=== PATIENT | female | born 1990 | race Caucasian/White ===

== ENCOUNTER → 2021-06-09 14:42 | Outpatient (CLI) | payer OTHER, SELFPAY ==
--- NOTE | ~2021-06-09 | US_ITS ---
EXAMINATION: US OB <=14 wk fetus w TV DATE: 06/09/2021 15:17 INDICATION: First trimester dating and viability assessment TECHNIQUE: Real-time pelvic transabdominal and transvaginal ultrasound was performed. COMPARISON: None. FINDINGS: The uterus measures 10.6 x 5.7 x 6.4 cm. There is an intrauterine gestational sac. There i s a 1.4 x 0.8 x 0.9 cm anechoic area adjacent to the gestational sac A yolk sac is identified. heart motion is identified measuring 163 beats per minute (bpm) by M-mode Doppler. The crown ru mp length measures 1.3 cm , which correlates with an estimated gestational age of 7 weeks and 4 day(s ) (+/-) 5 day(s). The right ovary measures 2.2 x 2.3 x 2.7 cm. The left ovary measures 5.8 x 3.5 x 4.2 cm and contains a 3.5 cm hypoechoic lesion, likely hemorrhagic cyst or endometrioma. There is normal vascular flow in the ovaries. There is no free fluid in the pelvis. IMPRESSION: 1. Live intrauterine with an estimated gestational age of 7 weeks and 4 day(s) (+/-) 5 day( s) and an estimated delivery date of 01/22/2022. 2. Small anechoic area adjacent to the gestational sac, likely small subchronic hemorrhage although i nvoluting second gestational sac is a consideration. Reviewed, dictated and finalized at location F. IMPRESSION: 1. Live intrauterine with an estimated gestational age of 7 weeks and 4 day(s) (+/-) 5 day(s) and an estimated delivery date of 01/22/2022. 2. Small anechoic area adjacent to the gestational sac, likely small subchronic hemorrhage although involuting second gestational sac is a consideration.
== END ==
PROVIDERS: PCP Student in an Organized Health Care Education/Training Program; Visit Provider Student in an Organized Health Care Education/Training Program
DX: Z34.91 Encounter for supervision of normal pregnancy, unspecified, first trimester (principal); Z3A.01 Less than 8 weeks gestation of pregnancy
CPT/HCPCS: 76801; 76817

== ENCOUNTER 2022-01-24 16:49 | Inpatient (IN) | payer OTHER, SELFPAY ==
[2022-01-24] VITALS (10 sets, daily range): BP systolic 101–130; BP diastolic 50–89; PULSE 91–108; BMI 36.3
--- NOTE | 2022-01-24 17:41 | LDADM ---
This patient, Griselda Oviedo, was admitted to Labor/Delivery/Recovery 107 on 01/24/22 at 16:49. Plans for labor, pain management and were discussed with patient. Patient/family oriented to hospital policies and general routines including ID bracelet, bed and alarms, visiting hours, pain management, procedures, bathroom and other care routines, personal items, smoking policy, room service/diet and guest tray routines, infant security routines, and visiting hours. Patient/Family are encouraged to report perceived risks to care and to ask questions if they do not understand what they are told or what they should do. See OBIX for further documentation.
[2022-01-24 17:51] LABS: Basophils Absolute Auto 0.1 K/mm3 (0.0-0.1); Basophils Percent Auto 0.5 % (0.2-1.2); Eosinophils Absolute Auto 0.2 K/mm3 (0-0.3); Eosinophils Percent Auto 2.1 % (0-4.4); Hematocrit 38.2 % (37.0-47.0); Hemoglobin 12.9 g/dL (12.0-15.0); Immature Granulocyte Absolute 0.16 K/mm3 (0.00-0.031); Immature Granulocyte Percent A 1.7 % (0-0.5); Lymphocytes Absolute Auto 1.35 K/mm3 (0.9-3.2); Lymphocytes Percent Auto 14.3 % (18.3-44.2); Mean Corpuscular HGB Conc 33.8 g/dl (32-36); Mean Corpuscular Hemoglobin 28.7 pg (26-34); Mean Corpuscular Volume 84.9 fl (80-100); Mean Platelet Volume 10.3 fl (7.4-10.4); Monocytes Absolute Auto 0.6 K/mm3 (0.1-0.6); Monocytes Percent Auto 6.5 % (2.6-8.5); Neutrophils Absolute Auto 7.1 K/mm3 (1.3-6.7); Neutrophils Percent Auto 74.9 % (45.5-73.1); Platelet Count Result 253 k/mm3 (150-375); White Blood Count 9.4 K/mm3 (4.5-10.0)
[2022-01-24] MEDS: DINOPROSTONE 10 MG VAG INSERT VAGINAL (18:10)
--- NOTE | 2022-01-24 18:34 | WPDANESEPP ---
Anes - Eval Pre Procedure Procedure: labor epidural Date/Time: 01/24/22 18:34 Pre Op Diagnosis: Induction of Labor Patient Data Age: 31 Gender: F Height: 1.57 m Weight: 90 kg Last Vital Signs Pulse 91 01/24/22 18:30 BP 130/77 01/24/22 18:30 O2 Del Method Room Air 01/24/22 17:40 Allergies Allergy/AdvReac Type Severity Reaction Status Date / Time nickel Allergy Unknown excema Verified 01/24/22 10:47 Home Medications Medication Instructions Recorded Confirmed Type cholecalciferol (vitamin D3) 50 50 mcg PO DAILY 08/10/21 01/24/22 History mcg (2,000 unit) capsule prenat.vits,van,[id number] 1 tablet PO HS 12/26/21 12/26/21 History Laboratory Tests 01/24/22 01/24/22 01/24/22 17:19 17:19 17:19 WBC 9.4 K/mm3 K/mm3 (4.5-10.0) RBC 4.50 M/mm3 M/mm3 (4.2-5.4) Hgb 12.9 g/dL g/dL (12.0-15.0) Hct 38.2 % % (37.0-47.0) MCV 84.9 fl fl (80-100) MCH 28.7 pg pg (26-34) MCHC 33.8 g/dl g/dl (32-36) RDW 14.0 % % (11.5-14.5) Plt Count 253 k/mm3 k/mm3 (150-375) MPV 10.3 fl fl (7.4-10.4) Immature Gran % (Auto) 1.7 % H % (0-0.5) Neut % (Auto) 74.9 % H % (45.5-73.1) Lymph % (Auto) 14.3 % L % (18.3-44.2) [place] % (Auto) 6.5 % % (2.6-8.5) Eos % (Auto) 2.1 % % (0-4.4) Baso % (Auto) 0.5 % % (0.2-1.2) Lymph # (Auto) 1.35 K/mm3 K/mm3 (0.9-3.2) [place] # (Auto) 0.6 K/mm3 K/mm3 (0.1-0.6) Eos # (Auto) 0.2 K/mm3 K/mm3 (0-0.3) Baso # (Auto) 0.1 K/mm3 K/mm3 (0.0-0.1) Abs Immat Gran (auto) 0.16 K/mm3 H K/mm3 (0.00-0.031) Absolute Neuts (auto) 7.1 K/mm3 H K/mm3 (1.3-6.7) Absolute Nucleated RBC 0.0 K/mm3 K/mm3 (0.0-0.012) Nucleated RBC % 0.0 % % (0.0-0.2) RPR Pending Blood Type O Positive Antibody Screen Pending Patient hx anesthesia problems: none Family hx anesthesia problems: none Results Review: All pre-operative results and documents have been reviewed as part of the pre-operative evaluation. [facility] Past Medical History Medical History (Updated 01/24/22 @ 18:35 by Rach Mcneal CRNA) Eczema GERD (gastroesophageal reflux disease) No active medical problems Obesity Surgical History Surgical History History of surgery on arm 1998, for fracture [place] teeth extracted 2010 Family History Family History Father Diabetes mellitus type 2 Mother Hypertension Mother Hypertension Social History Social History Smoking status: Never smoker Second hand tobacco smoke exposure: No Alcohol intake: former Alcohol use details: Not since Substance use: never Substance use type: does not use Lack of Transportation: No Lack of Food: Never True Current Housing: I Have Housing Concerned About Future Housing: No Difficulty Paying Gas/Electric Bills: No Difficulty Paying for Meds: No Currently Unemployed: No Education: Bachelor's Degree Difficulty w/ Childcare or Family Care: No Gender identity (if verbalized by the patient): Female Sexual Orientation (if Verbalized by the Patient): Straight or Heterosexual Spiritual care concerns: No Exam Day of Procedure 01/24/22 18:34 Patient weight: obese Heart: regular rate and rhythm Lungs: normal air movement Airway: Mallampati scale Neurological: alert and oriented
[2022-01-24] MEDS: LACTATED RINGERS 1,000 ML 125 ML IV CONT ×2 (19:08→23:43)
[2022-01-25] VITALS (228 sets, daily range): BP systolic 89–162; BP diastolic 46–126; PULSE 65–140; RESP 18; TEMP 36.2–36.9; O2SAT 94–100
[2022-01-25] MEDS: LACTATED RINGERS 1,000 ML 125 ML IV CONT ×2 (01:24→11:04)
[2022-01-25] MEDS: OXYTOCIN 30 UNITS/NS 500 ML 30 UNITS/500 ML BAG 6 UNITS IV CONT (04:28)
--- NOTE | 2022-01-25 08:39 | PM.IMHP ---
H&P: HPI History of Present Illness Date/Time: 01/25/22 08:39 Chief Complaint: Induction of labor Narrative: Patient is a 31-year-old LMP 04/15/2021 currently 40 weeks 5 days gestation who presented to labor and delivery for a scheduled elective induction of labor. Patient is dated by LMP consistent with ultrasound on 06/09/2021 at 7 weeks gestation. In general, patient doing well today without complaints. Reports occasional contractions. Denies vaginal bleeding or leakage of fluid. Reports good movement. Review of Systems Review of Systems: All systems reviewed & are unremarkable except as noted in HPI and below Constitutional: Constitutional: Reports as per HPI and Reports no additional constitutional complaints Eyes: Eyes: Reports as per HPI and Reports no additional eye complaints ENT: Reports system reviewed and no additional complaints, except as documented and Reports as per HPI Cardiovascular: Cardiovascular: Reports as per HPI and Reports no additional cardiovascular complaints Respiratory: Respiratory: Reports as per HPI and Reports no additional respiratory complaints Gastrointestinal: Gastrointestinal: Reports as per HPI and Reports no additional gastrointestinal complaints Genitourinary: Genitourinary: Reports no additional female genitourinary complaints and Reports as per HPI Musculoskeletal: Musculoskeletal: Reports no additional musculoskeletal complaints and Reports as per HPI Integumentary/Breasts: Skin/Breast: Reports system reviewed and no additional complaints, except as docu and Reports as per HPI Neurologic: Reports system reviewed and no additional complaints, except as documented and Reports as per HPI Psychiatric: Psychiatric: Reports no additional psychiatric complaints and Reports as per HPI Endocrine: Endocrine: Reports no additional endocrine complaints and Reports as per HPI Hematologic/Lymphatic: Hematologic/Lymphatic: Reports no additional hematologic/lymphatic complaints and Reports as per HPI Allergic/Immunologic: Allergic/Immunologic: Reports no additional allergic/immunologic complaints and Reports as per HPI [facility] Past Medical History Medical History Eczema GERD (gastroesophageal reflux disease) No active medical problems Obesity Surgical History Surgical History History of surgery on arm 1998, for fracture [place] teeth extracted 2010 Family History Family History Father Diabetes mellitus type 2 Mother Hypertension Mother Hypertension Social History Social History Smoking status: Never smoker Second hand tobacco smoke exposure: No Alcohol intake: former Alcohol use details: Not since Substance use: never Substance use type: does not use Lack of Transportation: No Lack of Food: Never True Current Housing: I Have Housing Concerned About Future Housing: No Difficulty Paying Gas/Electric Bills: No Difficulty Paying for Meds: No Currently Unemployed: No Education: Bachelor's Degree Difficulty w/ Childcare or Family Care: No Gender identity (if verbalized by the patient): Female Sexual Orientation (if Verbalized by the Patient): Straight or Heterosexual Spiritual care concerns: No Meds Home Medications and Allergies Home Medications Medication Instructions Recorded Confirmed Type cholecalciferol (vitamin D3) 50 50 mcg PO DAILY 08/10/21 01/24/22 History mcg (2,000 unit) capsule prenat.vits,van,[id number] 1 tablet PO HS 12/26/21 12/26/21 History Allergies Allergy/AdvReac Type Severity Reaction Status Date / Time nickel Allergy Unknown excema Verified 01/24/22 10:47 Vital Signs Vital Signs - 24 hr 01/24/22 17:40 01/24/22 18:16 01/24/22 18:30 Temperature Pu
[2022-01-25 11:07] LABS: Rapid Plasma Reagin Non-Reactive (NonReactive)
--- NOTE | 2022-01-25 12:29 | WPDHPUPDATE1 ---
History and Physical Update Update Date/Time: 01/25/22 12:29 History and Physical has been reviewed, including an updated exam of the patient. There are NO changes in the patient's condition. Risks, benefits, and alternatives have been discussed and questions answered. Patient agrees to proceed with procedure.
[2022-01-25] MEDS: OXYTOCIN 30 UNITS/NS 500 ML 30 UNITS/500 ML BAG 125 UNITS IV CONT (18:15)
--- NOTE | 2022-01-25 18:29 | P.PCNOB_ITS ---
OB - Delivery Note Procedure Delivery date: 01/25/22 Procedure: The patient is a 31-year-old now who presented to labor and delivery on the evening of 01/24/2022 at 40 weeks 4 days gestation for scheduled induction of labor. Induction of labor was started with Cervidil. Cervidil was placed and remained in place for approximately 6 hours. Cervidil was removed for development of tachysystole and category 2 tracing. Resuscitative measures were performed with adequate recovery of tracing. Tracing was allowed to recover and induction of labor was continued with Pitocin. Pitocin was started and continuously titrated throughout the remainder of the morning and afternoon. Patient became uncomfortable and requested an epidural for pain management which was placed without difficulty. Spontaneous rupture of membranes occurred at approximately 1:20 p.m. Clear amniotic fluid was noted. Patient continued to make progressive cervical change and was found to be fully dilated at 4:36 p.m. Patient was encouraged to push and found to be pushing well. Patient was prepped and draped for delivery. At 5:46 p.m., patient delivered head atraumatically and without difficulty in RICH presentation. A compound presentation was noted as hand delivered alongside face. A tight nuchal cord x1 was also noted, however, unable to be reduced. With subsequent push, the 's neck, shoulders, and rest of body delivered without difficulty. Nuchal cord was reduced. Infant was crying spontaneously. 's nose and mouth were suctioned with bulb suction. was placed on maternal abdomen where care was assumed by awaiting nursing staff. Delayed cord clamping was performed for approximately 60 seconds. Cord was clamped and cut. A segment of cord was collected for cord gases. Cord blood was collected. The placenta was delivered spontaneously and intact. Uterine fundus was noted to be firm with massage. On inspection, a second-degree perineal laceration was noted. This laceration was repaired with 2-0 and 3-0 Vicryl in the usual [facility]. Excellent hemostasis was noted. Estimated blood loss for entire delivery was 400 cc. Infant was a liveborn female , Apgars 8 and 9, weighing 8 lbs. 12 oz. Both mother and baby doing well at end of delivery. Intrapartal Events: Decelerations Induction method: Per Cervidil Protocol Delivery augmentation: Pitocin Delivery monitor: External FHT and External Uterine Route of delivery: Laceration Description: Perineal - 2nd Degree Delivery repair: vicryl (2-0 and 3-0 vicryl) Specimen: Yes (cord blood and cord gases) Quantitative Blood Loss (ml): 400 Anesthesia type: Epidural Disposition: Floor Complications: No immediate complications Baby Date of : 01/25/22 Time of : 17:46 Weeks of gestation at delivery: 40 (40.5) gender: Female Weight (pounds): 8 Weight (ounces): 12 presentation: compound ( hand delivered alongside face) position: Left Occiput Anterior Placenta delivery description: Spontaneous Cord Vessel Description: 3 Vessels, Nuchal Cord (x1) and Delayed Cord Clamping (x60s) score one minute: 8 score five minutes: 9 AMG Delivery Billing Delivery Delivery: Delivery Charge
[2022-01-25] MEDS: IBUPROFEN 600 MG TABLET PO (19:00)
[2022-01-25] MEDS: WITCH HAZEL 40 PADS 1 PAD TOPICAL (20:31)
[2022-01-25] MEDS: BENZOCAINE 20% AER SPR (*SP) 56 GM CAN 1 SPRAY TOPICAL (20:31)
[2022-01-26] MEDS: IBUPROFEN 600 MG TABLET PO ×4 (03:27→23:10)
[2022-01-26 04:00] VITALS: BP 127/67; PULSE 110; RESP 18; TEMP 37.7; O2SAT 99
[2022-01-26 05:38] LABS: Hemoglobin 9.1 g/dL (12.0-15.0)
--- NOTE | 2022-01-26 08:30 | PC.NURSE ---
PT introductions made and plan of care discussed per post , pain management, breast feeding, daily care activities. PT received such instructions per one to one discussion, mom baby care guide and demonstrations this shift. PT and spouse both recipients of such instructions PT show no barriers to learning and verbalized understanding of such care.
[2022-01-26 09:30] VITALS: BP 107/59; BP 113/59; PULSE 116; PULSE 117; RESP 16; RESP 18; TEMP 36.6; TEMP 36.9; O2SAT 98
[2022-01-26] MEDS: DOCUSATE SODIUM 100 MG CAPSULE PO ×2 (09:40→16:35)
[2022-01-26] MEDS: MULTIVIT/MIN/PREN/FOL AC/IRON TABLET 1 TAB PO (09:40)
[2022-01-26] MEDS: POLYSACCHARIDE IRON COMPLEX 150 MG CAPSULE PO ×2 (09:40→16:35)
[2022-01-26] MEDS: ACETAMINOPHEN 325 MG TABLET 650 MG PO ×3 (09:41→23:10)
--- NOTE | 2022-01-26 10:10 | P.PNOB_ITS ---
OB - PN: Subj Subjective Date/time seen: 01/26/22 10:10 Patient doing well. Pain and cramping reasonably controlled with medication. Minimal-moderate lochia. Ambulating without difficulty. Voiding well. OB - PN: Obj Data Labs 01/26/22 03:22 Labs: Laboratory Results - last 24 hr 01/24/22 01/26/22 17:19 03:22 Hgb 9.1 L D Hct 28.0 L RPR Non-reactive OB - PN A/P Assessment and Plan (1) Normal spontaneous vaginal delivery: Code(s): O80 - Encounter for full-term uncomplicated delivery Status: Acute Assessment and Plan: PPD#1 doing well continue routine care anticipate dc home tomorrow Time Spent With Patient Time: Total time spent is greater than 50% in coordination of care (as documented) at patient's floor/unit and/or counseling patient: Review of Systems Review of Systems: All systems reviewed & are unremarkable except as noted in HPI and below Exam Const: General: cooperative, healthy appearing, comfortable and no acute distress GI: Inspection: non-distended GI Palp: Yes Soft to palpation and No Tenderness to palpation present (GI) Other: fundus firm just below umbilicus Extrem: Right lower extremity: no edema Left lower extremity: no edema O ther: no calf tenderness
--- NOTE | 2022-01-26 10:29 | WPDANLDPN2 ---
Anes-Prog Note L&D Date/Time: 01/26/22 10:29 Comfortable throughout: labor and delivery Neuraxial method: epidural Epidural/Spinal procedure site: clean & non-tender Neuro status: Neuro function grossly intact. Cardiovascular status: normal Respiratory status: normal Airway patency: baseline Mental status: baseline Post-Op hydration status: normal Vital Signs: Last Vital Signs Temp 36.6 C 01/26/22 09:30 Pulse 117 H 01/26/22 09:30 Resp 18 01/26/22 09:30 BP 113/59 L 01/26/22 09:30 Pulse Ox 98 01/26/22 09:30 O2 Del Method Room Air 01/25/22 23:32 Pain score (VAS): 02/21 I/O: Intake & Output 01/25/22 01/26/22 01/26/22 23:59 07:59 15:59 Intake Total 2000 Output Total 493 Balance 1507 Post-procedural complaints: none Patient feedback: Patient satisfied with anesthetic care.
[2022-01-26 12:38] VITALS: BP 107/59; PULSE 116; RESP 16; TEMP 36.9; O2SAT 98
--- NOTE | 2022-01-26 15:42 | PC.NURSE ---
[id number] Introductions were made, then consulted with patient to assess needs related to . Mother led the conversation stating she is independently without pain. Primary RN assisted with adjusting her position from cradle position to cross cradle for a deeper latch and it felt better. Discussed positioning for comfort as it pertains to carpal tunnel syndrome. Resources provided for inpatient and outpatient services using mom/baby guide. Mother voiced understanding of information and will call to practice the football positioning at the next breastfeed. Reported to primary RN. [id number] Consulted with patient to practice the football position. Mother had just latched infant in the cross cradle position while awaiting RN to assist. After for 10-15 minutes was detached and placed skin to skin encouraging with stimulating touch and responded right away with feeding cues. Reviewed positioning with pillows bringing to nipple level, alignment, supporting breast, off-centered (asymmetrical latch) and leading with the chin with big, open, wide gape. latched optimally to the right breast in football position. Education given to the parents of how to visualize suck/swallow ratios and listen for drinking at the breast. was able to maintain latch without discomfort to mother. Nipple care reviewed with optimal latch and good positioning, comfort and to have clean hands when touching the nipple/breast as needed. Resources used to facilitate learning were used from the visual handout, tool, mom and baby guide. Parents voiced understanding of the education shared, calling for assistance if the does not latch or if there is discomfort with . Reported to the primary RN.
[2022-01-26 16:30] VITALS: BP 118/77; PULSE 112; RESP 18; TEMP 36.4; O2SAT 99
[2022-01-26 19:02] VITALS: BP 118/60; PULSE 100; RESP 18; TEMP 36.5
[2022-01-27] MEDS: IBUPROFEN 600 MG TABLET PO (05:10)
[2022-01-27] MEDS: ACETAMINOPHEN 325 MG TABLET 650 MG PO (05:10)
[2022-01-27 08:00] VITALS: PULSE 106; RESP 18; O2SAT 100
[2022-01-27 08:15] VITALS: BP 129/76; PULSE 106; RESP 18; TEMP 36.4; O2SAT 100
[2022-01-27] MEDS: MULTIVIT/MIN/PREN/FOL AC/IRON TABLET 1 TAB PO (09:44)
[2022-01-27] MEDS: DOCUSATE SODIUM 100 MG CAPSULE PO (09:45)
[2022-01-27] MEDS: POLYSACCHARIDE IRON COMPLEX 150 MG CAPSULE PO (09:45)
--- NOTE | 2022-01-27 10:52 | P.PNOB_ITS ---
OB - PN: Subj Subjective Date/time seen: 01/27/22 10:52 Patient doing well this morning. Cramping well controlled medication. Minimal to moderate lochia. Ambulating without difficulty. Voiding well. OB - PN: Obj Data Labs 01/26/22 03:22 OB - PN A/P Assessment and Plan (1) Normal spontaneous vaginal delivery: Code(s): O80 - Encounter for full-term uncomplicated delivery Status: Acute Assessment and Plan: PPD#2 doing well dc home in stable condition emergency precautions reviewed f/u in office in 4-6 weeks for visit Time Spent With Patient Time: Total time spent is greater than 50% in coordination of care (as documented) at patient's floor/unit and/or counseling patient: Review of Systems Review of Systems: All systems reviewed & are unremarkable except as noted in HPI and below Exam Const: General: cooperative, healthy appearing, comfortable and no acute d istress GI: GI Palp: Yes Soft to palpation and No Tenderness to palpation present (GI) Other: fundus firm below umbilicus Extrem: Right lower extremity: no edema Left lower extremity: no edema Other: no calf tenderness
--- NOTE | 2022-01-27 10:55 | PM.OBDSVD ---
DS: Admitting Diagnosis Discharge Date 01/27/22 Admitting Diagnosis IUP at 40w4d gestation Induction of labor OB - DS: Summary OB Procedures : None OB Procedures Intrapartum: Spontaneous Vag Delivery OB Procedures: : None Time Spent with Patient Time attestation: Total time spent providing and/or coordinating discharge services: Discharge Plan Discharge Attending physician on discharge: Klaudia Brandt Discharging Clinician: Klaudia Brandt Anticipated Discharge Date/Time: 01/27/22 10:56 Patient Disposition: Home, Self-Care Activity: as tolerated and pelvic rest Diet: regular Discharge Instructions: Call office ([phone]) to schedule a visit in 4-6 weeks. You may take Ibuprofen 600mg every 6 hours as needed for pain. Pain medication may make you constipated. It may be helpful to take an [id number]-[id number]-[id number] stool softener, such as Colace and/or Senokot, along with the pain medication to help lessen constipation. Call office or go to ED for pain not controlled with medication, headache, chest pain, shortness of breath, fever, chills, persistent nausea or vomiting, severe abdominal pain, heavy vaginal bleeding >2 pads/hour, foul vaginal discharge or odor, or problems with your breasts. Patient Instructions: Antibiotic Form Stand Alone Forms: General Discharge Information Follow-up/Referrals: Klaudia Brandt MD [Physician] - Discharge Medications: Continued #2 Tablet 1 tablet PO HS Discontinued cholecalciferol (vitamin D3) 50 mcg (2,000 unit) capsule 50 mcg PO DAILY Date of admission: 01/24/22 16:49 Primary Care Provider: Cedric Lawrence Admitting Provider: Klaudia Brandt Attending physician on admission: Klaudia Brandt Condition: Stable
--- NOTE | 2022-01-27 11:24 | PC.NURSE ---
Patient viewed the discharge video Mother & Baby Care, The First Two Weeks . Patient was given the opportunity and encouraged to ask questions. Patient verbalized understanding of information shared and has been given the mother/baby guide for home reference.
--- NOTE | 2022-01-27 14:11 | PC.NURSE ---
[id number] Mother led the conversation with her experience though the night, plan to feed her and her ability to independently latch infant on her left breast using cross cradle positioning. RN suggested an adjustment in her positioning as infant was dangling and the latch appeared to be less than 90 degrees. Since had breastfed 15 minutes mother opted to change sides. Nipple was slightly misshaped. Assisted infant and mother with optimal positioning to the right breast using football positioning and mother denies pain. is effectively with good rocking jaw motion and suck/swallow ratios that are appropriate. Mother is feeding appropriately for growth of and understands stimulating infant to eat if needed. Infant has had appropriate feedings in the last 24 hours meets the outcomes for weight, output and jaundice at this time. Mother states she is confident to continue effectively her at home, when to call for assistance, denies any additional assistance or education at this time. Mother is demonstrating effectively on the left breast using cross cradle positioning. Reinforced understanding of milk production, transition of milk, signs of adequate intake, prevention/relief of engorgement, responsive after visualizing feeding cues, the different methods of stimulating to breastfeed 2-3 hours after the start of the last feeding, community resources, medication information reviewed per [employer], when to call a provider using the resource of the mom and baby guide. Father of baby had many concerns and fears. Questions and concerns were addressed and resources were provided if needed. Parents voiced understanding of the education shared.
[2022-01-28 11:41] VITALS: BP 134/76; PULSE 120; RESP 20; TEMP 37.4; O2SAT 100
== END 2022-01-27 12:45 | disposition home or self-care (01) | DRG 807 ==
LOC: ANHLDR 16:58 → ANHOB2 01-25 21:25
PROVIDERS: Admitting Provider Student in an Organized Health Care Education/Training Program; PCP Family Medicine; Visit Provider Student in an Organized Health Care Education/Training Program
DX: O32.6XX0 Maternal care for compound presentation, not applicable or unspecified (principal); Z37.0 Single live birth; Z3A.40 40 weeks gestation of pregnancy; O70.1 Second degree perineal laceration during delivery; O69.1XX0 Labor and delivery complicated by cord around neck, with compression, not applicable or unspecified
CPT/HCPCS: 36415; 85014; 85018; 85025; 86592; 86850; 86900; 86901; A9270; J2590; J2795; J7120

== ENCOUNTER 2023-06-05 08:13 | Outpatient (CLI) | payer BC, SELFPAY ==
--- NOTE | ~2023-06-05 | US_ITS ---
EXAMINATION:US venous doppler LE RT INDICATION:Leg swelling TECHNIQUE: Multiple grayscale, color flow and Doppler images of the right lower extremity deep venous systems were obtained and reviewed. COMPARISON:No prior studies for comparison. FINDINGS: The common femoral, superficial femoral and popliteal veins demonstrate normal respiratory variation, augmentation and compressibility. Color flow is also seen within the posterior tibial, pe roneal, greater saphenous and profunda veins. IMPRESSION: 1: No lower extremity deep venous thrombosis. Reviewed, dictated and finalized at location B.
== END 2023-06-05 08:14 | disposition home or self-care (01) ==
PROVIDERS: PCP Family Medicine; Visit Provider Family Medicine
DX: R60.0 Localized edema (principal)
CPT/HCPCS: 93971